=== PATIENT | male | born 1960 | race Caucasian/White ===

== ENCOUNTER 2022-07-09 20:48 | Emergency (ER) | payer SELFPAY ==
[2022-07-09 20:50] VITALS: BP 174/89; PULSE 98; RESP 18; TEMP 36.9; O2SAT 100
--- NOTE | 2022-07-09 21:01 | PC.NURSE ---
1st encounter, pt comes to ED today c/o pain in penis, states he wants his catheter taken out. pt. also states that he is out of his insulin and needs it refilled. pt in no acute distress or SOB, airway patent, breathing even/unlabored. pt A&Ox4, denies any chest pain or GINA, gait steady. pt awaiting evaluation.
--- NOTE | 2022-07-09 21:11 | ED.MALEGU ---
HPI - Male Genitourinary General Chief complaint: Urogenital-Male Stated complaint: catheter issues Time Seen by Provider: 07/09/22 21:10 Source: patient Mode of arrival: ambulatory Limitations: no limitations History of Present Illness HPI Narrative: Patient is 62 years old white male, works as a industrial truck mechanic, ran out of Flomax few weeks ago, developed urinary retention, had Morales catheter placed in [facility], started on Flomax again and would like to remove the catheter which has been there for 1 week. Patient also ran out of insulin and would like to get a refill from [employer]. He denies any fever, chills, nausea, vomiting. Patient still me that he is going to drive back to his home state of [place] and is scheduled to see a urologist over there. I was very clear with the patient about the possibility of recurrent urinary retention 3 hours or few days after removing the Morales catheter today. He agreed. And telling me that he cannot take it anymore the Morales catheter have to come out. Review of Systems Review of Systems: All systems reviewed & are unremarkable except as noted in HPI and below Exam Narrative: General appearance: Well-developed, well-nourished Skin: Normal color Head: Normocephalic, nontraumatic Eyes: Clear conjunctiva ENT: Oropharynx normal, ears normal, nose normal Neck: Supple, nontender Chest and respiratory: Airway patent, no respiratory distress, no accessory muscle use Heart: Regular rate/rhythm Abdomen: Soft, nontender, no organomegaly, quiet bowel sounds, Morales catheter in place Vascular: Normal peripheral pulses, normal capillary refill. Musculoskeletal: Normal range of motion, nontender back Neurologic: Alert and oriented ?3, PA[employer] is normal as tested, no gross motor deficit Course Reevaluation(s) Reevaluation #1: Patient feeling much better after Morales catheter removal. And ready to go home. Date: 07/09/22 Time: 21:22 Vital Signs Vital signs: Vital Signs Temperature 36.9 C 07/09/22 20:50 Pulse Rate 98 07/09/22 20:50 Respiratory Rate 18 07/09/22 20:50 Blood Pressure 174/89 H 07/09/22 20:50 Pulse Oximetry 100 07/09/22 20:50 Oxygen Delivery Room Air 07/09/22 20:50 Temperature 36.9 C 07/09/22 20:50 Pulse Rate 98 07/09/22 20:50 Respiratory Rate 18 07/09/22 20:50 Blood Pressure 174/89 H 07/09/22 20:50 Pulse Oximetry 100 07/09/22 20:50 Oxygen Delivery Room Air 07/09/22 20:50 MDM - Male Genitourinary MDM Narrative Medical decision making narrative: Patient came to our emergency room to remove his Morales catheter which has been there for 1 week. I did explain in details that the urine retention could come back within hours or days. And he have to go to close the emergency room as soon as possible because he is a industrial truck mechanic. Patient would like to get refill for Novo[employer] pen. Morales catheter removed, patient feels great and ready to go home. Differential Diagnosis Differential diagnosis: Likely other (Morales catheter removal, , medication refill) Critical Care Time Critical Care Time Critical Care Time: Yes Total Critical Care Time: 10 Discharge Plan Discharge Clinical Impression: Encounter for Morales catheter removal, Medicine refill Patient Disposition: Home, Self-Care Condition: Stable Instructions: Medicine Refill (ED), Type 2 Diabetes in the Older Adult (ED), Morales Catheter Removal (DC) Additional Instructions: Return if symptoms are worsening , call your family physician for appointment, take Tylenol as as needed for aches and pain, continue home medications. Go to the closest emergency room as soon as possible in case of trouble urinating. Pres
--- NOTE | 2022-07-09 21:41 | PC.NURSE ---
urinary catheter removed, no complications. pt advised it should be removed by urology and that he could end up with urinary retention if catheter removed. pt understands the risks and wants to continue with removal of catheter.
== END 2022-07-09 22:10 | disposition home or self-care (01) ==
PROVIDERS: Emergency Provider Emergency Medicine
DX: Z46.6 Encounter for fitting and adjustment of urinary device (principal); N40.1 Benign prostatic hyperplasia with lower urinary tract symptoms; R33.8 Other retention of urine; E11.9 Type 2 diabetes mellitus without complications; Z79.4 Long term (current) use of insulin
CPT/HCPCS: 99281